=== PATIENT | male | born 1985 | race Caucasian/White ===

== ENCOUNTER 2017-05-23 14:25 | Emergency (ER) | payer OTHER ==
[~2017-05-23] VITALS: Ht 185.4 cm; Wt 88.0 kg
[2017-05-23 14:42] VITALS: Ht 185.4 cm; Wt 88.0 kg
[2017-05-23 15:12] VITALS: BP 133/82
== END 2017-05-23 15:12 | disposition home or self-care (01) ==
LOC: ED 14:25
DX: J00 Acute nasopharyngitis [common cold] (principal); R50.9 Fever, unspecified; R05 Cough

== ENCOUNTER 2017-12-08 20:59 | Emergency (ER) | payer MEDICAID ==
[~2017-12-08] VITALS: Ht 185.4 cm; Wt 91.7 kg
[2017-12-08 23:05] VITALS: Ht 185.4 cm; Wt 91.7 kg
[2017-12-09 02:37] VITALS: BP 131/76
== END 2017-12-09 02:37 | disposition home or self-care (01) ==
LOC: ED 20:59
DX: M54.5 Low back pain (principal); V86.99XA Unspecified occupant of other special all-terrain or other off-road motor vehicle injured in nontraffic accident, initial encounter; Y93.89 Activity, other specified; Y92.89 Other specified places as the place of occurrence of the external cause; Y99.8 Other external cause status
CPT/HCPCS: J1885; J3010

== ENCOUNTER 2018-06-07 17:03 | Emergency (ER) | payer OTHER ==
[~2018-06-07] VITALS: Ht 185.4 cm; Wt 93.9 kg
[2018-06-07 17:14] VITALS: Ht 185.4 cm; Wt 93.9 kg
[2018-06-07 18:54] VITALS: BP 141/90
== END 2018-06-07 18:54 | disposition home or self-care (01) ==
LOC: ED 17:03
DX: S63.642A Sprain of metacarpophalangeal joint of left thumb, initial encounter (principal); F41.9 Anxiety disorder, unspecified; W01.0XXA Fall on same level from slipping, tripping and stumbling without subsequent striking against object, initial encounter; Y93.89 Activity, other specified; Y92.89 Other specified places as the place of occurrence of the external cause; Y99.8 Other external cause status

== ENCOUNTER 2018-11-14 18:13 | Emergency (ER) | payer OTHER ==
[~2018-11-14] VITALS: Ht 185.4 cm; Wt 89.4 kg
[2018-11-14 18:17] VITALS: Ht 185.4 cm; Wt 89.4 kg
[2018-11-14 20:19] VITALS: BP 140/107
== END 2018-11-14 20:19 | disposition home or self-care (01) ==
LOC: ED 18:13
DX: J06.9 Acute upper respiratory infection, unspecified (principal); F41.9 Anxiety disorder, unspecified; F15.10 Other stimulant abuse, uncomplicated

== ENCOUNTER 2018-12-06 20:13 | Emergency (ER) | payer OTHER ==
[~2018-12-06] VITALS: Ht 185.4 cm; Wt 94.3 kg
[2018-12-06 20:25] VITALS: Ht 185.4 cm; Wt 94.3 kg
[2018-12-06 23:49] VITALS: BP 132/70
== END 2018-12-06 23:49 | disposition home or self-care (01) ==
LOC: ED 20:13
DX: L03.116 Cellulitis of left lower limb (principal); F41.9 Anxiety disorder, unspecified
CPT/HCPCS: 90715; J0696; Q0092

== ENCOUNTER 2019-07-01 08:28 | Emergency (ER) | payer OTHER ==
[~2019-07-01] VITALS: Ht 185.4 cm; Wt 87.5 kg
[2019-07-01 08:32] VITALS: BP 137/86; Ht 185.4 cm; Wt 87.5 kg
== END 2019-07-01 10:26 | disposition home or self-care (01) ==
LOC: ED 08:28
DX: S90.852A Superficial foreign body, left foot, initial encounter (principal); W45.8XXA Other foreign body or object entering through skin, initial encounter; Y93.89 Activity, other specified; Y92.89 Other specified places as the place of occurrence of the external cause; Y99.8 Other external cause status
CPT/HCPCS: J2001; Q0092

== ENCOUNTER 2019-12-07 22:37 | Emergency (ER) | payer OTHER ==
[~2019-12-07] VITALS: Ht 182.9 cm; Wt 88.5 kg
[2019-12-07 22:48] VITALS: Ht 182.9 cm; Wt 88.5 kg
[2019-12-07 23:58] LABS: BASOPHIL % 0.2 % (0-2); PLATELET COUNT 274 x10^3mcL (130-400); RED CELL DISTRIBUTION WIDTH 13.2 % (11.5-14.5)
[2019-12-08 00:10] LABS: CHLORIDE SERUM 98 mmol/L (98-107); CREATININE SERUM 1.3 mg/dL (0.7-1.3); GFR1 > 60 mL/min; GLUCOSE SERUM 133 mg/dL (74-106); POTASSIUM SERUM 3.6 mmol/L (3.5-5.1); SODIUM SERUM 139 mmol/L (136-145)
[2019-12-08 00:15] LABS: ALBUMIN 4.3 g/dL (3.4-5.0); ALKALINE PHOSPHATASE 40 U/L (46-116); ALT/SGPT 29 U/L (16-63); AST/SGOT 18 U/L (15-37); BILIRUBIN TOTAL 0.6 mg/dL (0.20-1.00)
[2019-12-08 01:15] VITALS: BP 154/95
== END 2019-12-08 01:15 | disposition home or self-care (01) ==
LOC: ED 22:37
PROVIDERS: Emergency Medicine
DX: F12.19 Cannabis abuse with unspecified cannabis-induced disorder (principal); R11.2 Nausea with vomiting, unspecified; R19.7 Diarrhea, unspecified
CPT/HCPCS: J1630; J2405